=== PATIENT | male | born 1990 | race Caucasian/White ===

== ENCOUNTER 2017-01-10 01:19 | Emergency (ER) | payer SELFPAY ==
[~2017-01-10] VITALS: Ht 175.3 cm; Wt 108.5 kg
[2017-01-10 02:33] LABS: HEMATOCRIT 43.7 % (39.2-51.8); HEMOGLOBIN 14.8 g/dL (13.7-18.0); WHITE BLOOD COUNT 11.4 x10^3/uL (3.4-10)
[2017-01-10 02:44] LABS: ASPARTATE AMINO TRANSFERASE 16 U/L (15-37); BLOOD UREA NITROGEN 20 mg/dL (7-18)
[2017-01-10] MEDS ORDERED: OMNIPAQUE 350 MG/ML, 100ML BOTTLE ONE (03:45)
[2017-01-10 03:52] VITALS: BP 124/72
== END 2017-01-10 04:27 | disposition home or self-care (01) ==
LOC: ED 03:00
DX: S39.011A Strain of muscle, fascia and tendon of abdomen, initial encounter (principal); R10.31 Right lower quadrant pain; X58.XXXA Exposure to other specified factors, initial encounter; Y93.89 Activity, other specified; Y92.89 Other specified places as the place of occurrence of the external cause; Y99.8 Other external cause status
CPT/HCPCS: 36415; 74177; 80053; 81003; 83690; 85025; 99285; Q9967

== ENCOUNTER 2019-02-28 06:41 | Emergency (ER) | payer OTHER ==
[~2019-02-28] VITALS: Ht 175.3 cm; Wt 107.7 kg
--- NOTE | 2019-02-28 06:56 | NUR ---
PT HERE WITH C/O LEFT INTERMITTENT TESTICLE PAIN X 1 WEEK. PT STATES HE WAS AT WORK AND LIFTED A HEAVY OBJECT AND "FELT MY LEFT TESTICLE GO UP. THE PAIN STARTED THE DAY AFTER." PT AAO X 4, NAD, ROOM AIR, DRESSED IN GOWN. CALL LIGHT WITHIN REACH AND SIDERAIL X [address]
--- NOTE | 2019-02-28 07:01 | NUR ---
MED REC COMPLETED, PA AT BEDSIDE FOR EXAM.
--- NOTE | 2019-02-28 07:17 | NUR ---
PT TO US, EDUCATED ON NEED FOR URINE SAMPLE.
--- NOTE | 2019-02-28 07:26 | NUR ---
REPORT GIVEN TO GREER RODRIGUEZ. CARE TRANSFERRED.
--- NOTE | 2019-02-28 07:26 | NUR ---
RECEIVED REPORT FROM WO[facility]
--- NOTE | 2019-02-28 08:06 | NUR ---
PT RETURNED FROM US, UPRIGHT ON GURNEY AWAKE & MORE COMFORTABLE, RESPONDS APPROP TO STAFF, NAD, COMFORT MEASURES PROVIDED, CALL LIGHT WITHIN REACH.
[2019-02-28 08:35] LABS: MICROSCOPIC NOT IND
[2019-02-28 08:49] LABS: CULTURE INDICATED? NO
[2019-02-28 09:01] VITALS: BP 119/90
--- NOTE | 2019-02-28 09:02 | NUR ---
Patient given discharge instructions and Rx, they have confirmed that they understand the instructions. Patient ambulatory with steady gait.
== END 2019-02-28 09:13 | disposition home or self-care (01) ==
LOC: ED 08:58
DX: N43.3 Hydrocele, unspecified (principal)
CPT/HCPCS: 76870; 81003; 93975; 99284

== ENCOUNTER 2020-04-03 20:15 | Emergency (ER) | payer OTHER ==
[~2020-04-03] VITALS: Ht 175.3 cm; Wt 111.8 kg
--- NOTE | 2020-04-03 20:41 | NUR ---
PT HERE FOR C/O RIGHT CALF PAIN WITH TOUCH, STATES HE FELT A CRAMP 2 WEEKS AGO AND HAS NOW BRUISED, DENIES TRAUMA OR KNOWN INJURY.
[2020-04-03 21:25] VITALS: BP 135/84
== END 2020-04-03 22:22 | disposition home or self-care (01) ==
LOC: ED 21:22
DX: S80.11XA Contusion of right lower leg, initial encounter (principal); M79.89 Other specified soft tissue disorders; X58.XXXA Exposure to other specified factors, initial encounter; Y93.89 Activity, other specified; Y92.89 Other specified places as the place of occurrence of the external cause; Y99.8 Other external cause status
CPT/HCPCS: 99284